=== PATIENT | male | born 2005 ===

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

== ENCOUNTER 2024-01-07 13:21 | Outpatient (REF) | payer MEDICAID, SELFPAY ==
--- NOTE | ~2024-01-07 | XR_ITS ---
EXAMINATION: XR HAND, RIGHT CLINICAL INFORMATION: Trauma after punching brick wall COMPARISON: None available. TECHNIQUE: PA, lateral, and oblique views of the right hand. FINDINGS: There is an impacted fracture through the base of the fifth metacarpal, consistent with the clinical history. The remainder of the right hand is intact. Joint spaces are preserved. XR/XR hand RT min 3V IMPRESSION: Fifth metacarpal boxer's fracture.
== END 2024-01-07 13:22 | disposition home or self-care (01) ==
LOC: HO.HHCX 13:21
PROVIDERS: Visit Provider Pediatrics
DX: S69.91XD Unspecified injury of right wrist, hand and finger(s), subsequent encounter (principal)
CPT/HCPCS: 73130

== ENCOUNTER 2024-01-15 16:26 | Emergency (ER) | payer OTHER, MEDICAID, SELFPAY ==
[2024-01-15] VITALS (13 sets, daily range): BP systolic 107–220; BP diastolic 46–100; PULSE 94–116; RESP 9–22; TEMP 36.7–36.8; O2SAT 94–100; BMI 35.9
--- NOTE | ~2024-01-15 | XR_ITS ---
EXAMINATION: XR KNEE, LEFT CLINICAL INFORMATION: Post reduction. COMPARISON: Radiograph right knee 09/29/2022. TECHNIQUE: Two views of the left knee. FINDINGS: Patella renea. No acute fracture or dislocation. Trace joint effusion. XR/XR knee LT 2V IMPRESSION: 1. Patella renea. 2. No acute fracture. 3. Trace joint effusion.
--- NOTE | ~2024-01-15 | XR_ITS ---
EXAMINATION: LEFT KNEE CLINICAL INFORMATION: Patella versus knee dislocation COMPARISON: Left knee 12/02/2015 TECHNIQUE: Single view of the knee FINDINGS: Detail is obscured by overlying material. No definite fracture is seen. No definite dislocation is seen. XR/XR knee LT 1V IMPRESSION: Limited exam. No definite fracture or dislocation is seen. Recommend full knee series if patient continues to be symptomatic
--- NOTE | 2024-01-15 16:57 | ECG_ITS ---
Test Reason : CONSCIOUS SEDATION Blood Pressure : / mmHG Vent. Rate : 090 BPM Atrial Rate : 090 BPM P-R Int : 154 ms QRS Dur : 082 ms QT Int : 338 ms P-R-T Axes : 024 021 029 degrees QTc Int : 413 ms Normal sinus rhythm Normal ECG When compared with ECG of 28-JAN-2013 12:59, No significant changes seen Referred By: Mary Jane Dexter Electronically Signed By:MICHELET CONTRERAS MD
[2024-01-15] MEDS: Morphine Sulfate 4 MG/ML CARTRIDGE IVPUSH (17:18)
--- NOTE | 2024-01-15 17:37 | ED_ITS ---
HPI - Extremity Injury (Lower) General Chief Complaint: Extremity Injury, Lower Stated Complaint: L-knee pain, dislocated patella while working Time Seen by Provider: 01/15/24 16:29 Source: patient, family and EMS Mode of arrival: EMS Limitations: no limitations History of Present Illness HPI Narrative: Patient comes to the emergency room by EMS, accompanied by his mother. Earlier today, patient was at work, patient states that he turned around, hurt his knee pop and since then he has had deformity and severe pain in the left knee. Patient states that he has dislocated his right knee twice and has had surgery. Patient denies any falls or trauma. Patient states that the last time he ate was approximately 3-4 hours ago Related Data Previous Rx's ?Medication ?Instructions ?Recorded ibuprofen 600 mg tablet 600 mg PO TID PRN fever or pain 01/15/24 #20 tabs Allergies Allergy/AdvReac Type Severity Reaction Status Date / Time No Known Allergies Allergy Verified 01/15/24 16:53 Review of Systems Review of Systems: Constitutional : No Weight loss, No Fever, No Chills, No Night Sweats, No Fatigue, No Malaise ENT/Mouth : No Hearing loss, No Ear Pain, No Nasal Congestion, No Sinus Pain, No Hoarseness, No sore throat, No Rhinorrhea, No Swallowing Difficulty Eyes: No Eye Pain, No Swelling, No Redness, No Foreign Body, No Discharge, No Vision Changes Cardiovascular : No Chest Pain, No SOB, No Dyspnea on Exertion, No Orthopnea, No Edema, No Palpitations Respiratory : No Cough, No Sputum, No Wheezing, No Smoke Exposure, No Dyspnea Gastrointestinal : No Nausea, No Vomiting, No Diarrhea, No Constipation, No abdominal Pain, No Hematochezia, No Melena Genitourinary : no irregular bleeding, No Dysuria, No Urinary Frequency, No Hematuria, No Urinary Incontinence, No Urgency, No Flank Pain, No Urinary Flow Changes, No Hesitancy Musculoskeletal : Complaining of deformity and pain in the left patella Skin : No Skin Lesions, No rash Neuro : No Weakness, No Numbness, No Paresthesias, No Loss of Consciousness, No Dizziness, No Headache Psych : No Anxiety/Panic, No Depression, No SI/HI/AH/VH, No Social Issues, Heme/Lymph: No Bruising, No Bleeding,No Lymphadenopathy Endocrine : No Polyuria, No Polydipsia, No Temperature Intolerance PMFSH Social History Social History Alcohol intake: never Patient Tobacco Use Status: Never used Tobacco Smoked in Last 30 Days: No Use of substances other than those prescribed or required for medical reasons: Yes Substance Use Type: Marijuana Advance Directives: No Advance Directives Information Provided: No Do you have a plan to hurt others: No Plan Current occupational status: student Physical Exam Vital Signs: Vital Signs: Last Vital Signs Temp 98.3 F 01/15/24 16:46 Pulse 98 01/15/24 18:56 Resp 16 01/15/24 18:56 BP 116/58 L 01/15/24 18:56 Pulse Ox 94 01/15/24 18:56 O2 Del Method Nasal Cannula 01/15/24 18:28 O2 Flow Rate 2 01/15/24 18:28 Oxygen Flow Rate 2 01/15/24 18:40 BMI result Body Mass Index 35.9 Const: Other: Appearance: Alert. Oriented X3. No acute distress. Eyes: Pupils equal, round and reactive to light. ENT: Pharynx normal. Neck: Normal inspection. Neck supple. No lymph nodes noted. No crepitus CVS: Normal heart rate and rhythm. Pulses normal. Normal S1 and S2 Respiratory: No respiratory distress. Breath sounds normal. No Wheezing. No rales Abdomen: Soft and nontender. No rigidity. No distention. Skin: Skin warm and dry. Normal skin color. Normal skin turgor. Extremities: Patient has good pedal pulses bilaterally, patient left patella seems to be dislocated Neuro: Oriented X 3. No motor deficit. No sensory deficit. Moving all extremities. No slurred speech. CN 2 through 12 grossly intact Psych: calm, cooperative, normal affect Course Course Course Narrative: -when patient arrived, it was attempted to reduce the patient's patella, however, patient could not tolerate it, patient requesting conscious sedation. Medications Administered Discontinued Medications Generic Name Dose Route Start Last Admin Trade Name Freq PRN Reason Stop Dose Admin Ketamine HCl 97.976 mg 01/15/24 17:32 01/15/24 17:58 Ketamine Hcl/Ns 50 Mg/5 Ml Syringe 1 mg/kg (97.976 mg) 01/15/24 17:33 97.976 mg IVPUSH Administration ONCE ONE Ketamine HCl 100 mg 01/15/24 18:54 01/15/24 17:58 Ketamine Hcl/Ns 50 Mg/5 Ml Syringe IVPUSH 01/15/24 18:55 100 mg NOW STA Administration Morphine Sulfate 4 mg 01/15/24 16:33 01/15/24 17:18 Morphine Sulfate 4 Mg/Ml Cartridge IVPUSH 01/15/24 16:34 4 mg ONCE ONE Administration Protocol Ondansetron HCl 4 mg 01/15/24 17:33 01/15/24 17:48 Ondansetron Hcl 4 Mg/2 Ml Vial IVPUSH 01/15/24 17:34 4 mg ONCE ONE Administration Medical Decision Making Medical Decision Making MDM Narrative: -my interpretation of EKG, normal sinus rhythm, heart rate 90, no ST segment depression or elevation, no T-wave inversion, QTC 413 -patient given IM morphine. IV to be inserted, patient will get Zofran and ketamine. Propofol was considered however the patient ate 3 to 4 hours ago. -patient agreed to conscious sedation and left knee reduction. Patient requested that his mother signed the consent, which she did. -my interpretation of knee x-ray: Patellar dislocation, no knee dislocation. -radiology report exam was limited. However on physical exam it was clear that the patella is dislocated. -patient tolerated well the procedure sedation with ketamine 2 milligrams/kilogram, patient received a total of 197 mg. -the patella was easily reduced, popped right back in place -on physical exam after reduction, patient has good strong pedal pulses and good capillary refill in the toes -2nd x-ray post reduction done, my interpretation of x-ray: Patella has been reduced successfully -patient's knee has been placed in a knee immobilizer, patient is still confused from sedation. When awake, patient will be taught how to use crutches although he has done before. -patient will follow-up with orthopedics. Differential Diagnosis Differential Diagnoses: The differential diagnosis associated with the presentation includes (Patellar dislocation, knee dislocation, knee contusion) Independent Interpretation I performed an independent interpretation of an: Plain X-Ray Radiology Impression Discussion of test interpretation with radiology: I have reviewed the radiologist's reading. Radiologist Impression: MPRESSION: Limited exam. No definite fracture or dislocation is seen. Recommend full knee series if patient continues to be symptomatic FINDINGS: Patella renea. No acute fracture or dislocation. Trace joint effusion. XR/XR knee LT 2V IMPRESSION: 1. Patella renea. 2. No acute fracture. 3. Trace joint effusion. Independent Historian Clinical information obtained from an independent historian. History obtained from or confirmed by: Parent Discharge Plan Discharge Clinical Impression: Closed dislocation of left patella Patient Disposition: Home, Self-Care Instructions: Crutch Instructions (ED), Knee Dislocation (ED), Knee Immobilizer (ED) Additional Instructions: Please follow-up with your primary care physician tomorrow. If you have any worsening or new symptoms, please return to the emergency room or call 911 Prescriptions: New ibuprofen 600 mg tablet 600 mg PO TID PRN (Reason: fever or pain) Qty: 20 0RF Print Language: Maltese
--- NOTE | 2024-01-15 17:46 | PC.NURSE ---
pt has positive pedal pulses and positive capillary refill to [facility].
[2024-01-15] MEDS: ondansetron HCL 4 MG/2 ML VIAL IVPUSH (17:48)
[2024-01-15] MEDS: Ketamine HCl/NS 50 MG/5 ML SYRINGE 97.976 MG IVPUSH (17:58)
[2024-01-15] MEDS: Ketamine HCl/NS 50 MG/5 ML SYRINGE 100 MG IVPUSH (17:58)
--- NOTE | 2024-01-15 18:31 | PC.NURSE ---
pt a&o x4, pleasant, calm, and cooperative. pt rating 10/10 knee pain with movement/no support. screaming upon arrival to ED. 20G IV placed to LAC and EKG obtained. pt mom at bedside. conscious sedation consent signed. pt placed on bedside monitor, placed on capnogaphy, on 2L O2. mom escorted to waiting room for procedure. pt medicated per nov, consciously sedated, tolerated well. knee immobilizer placed on pt. crutches at bedside. pt currently recovering from conscious sedation. mom back at bedside. rr even/unlabored. t/w at bedside. plan of care ongoing.
--- NOTE | 2024-01-15 20:21 | PC.NURSE ---
pt completely back to baseline mentation. a&o x4, pleasant, calm, and cooperative. pt reporting 1/10 pain to left knee.
== END 2024-01-15 20:25 | disposition home or self-care (01) ==
PROVIDERS: Emergency Provider Emergency Medicine
DX: S83.005A Unspecified dislocation of left patella, initial encounter (principal); X50.1XXA Overexertion from prolonged static or awkward postures, initial encounter; Y93.9 Activity, unspecified; Y92.9 Unspecified place or not applicable; Y99.0 Civilian activity done for income or pay
CPT/HCPCS: 27560; 27562; 73560; 93005; 96374; 96375; 99152; 99284; 99285; J2270; J2405

== ENCOUNTER → 2024-01-15 16:57 | Outpatient (BNV) | payer OTHER, MEDICAID, SELFPAY | PROVIDERS: Emergency Provider Emergency Medicine; Visit Provider Internal Medicine Cardiovascular Disease | DX: Z01.810 Encounter for preprocedural cardiovascular examination (principal) | CPT/HCPCS: 93010 ==

== ENCOUNTER 2024-01-17 09:50 | Outpatient (REF) | payer OTHER, MEDICAID, SELFPAY ==
--- NOTE | ~2024-01-17 | XR_ITS ---
EXAMINATION: XR HAND, RIGHT CLINICAL INFORMATION: Pain in right hand COMPARISON: Prior x-rays of the right hand December 2023 TECHNIQUE: PA, lateral, and oblique views of the right hand. FINDINGS: Nondisplaced minimally angulated fracture the proximal fifth metacarpal. The fracture may extend to the proximal articular surface. The appearance is unchanged. Remaining bone and joints are unremarkable. XR/XR hand RT min 3V IMPRESSION: Unchanged appearance of fracture of the proximal fifth metacarpal.
== END 2024-01-17 09:51 | disposition home or self-care (01) ==
LOC: HO.HOSX 09:50
PROVIDERS: Visit Provider Physician Assistant
DX: M79.641 Pain in right hand (principal); S83.005A Unspecified dislocation of left patella, initial encounter
CPT/HCPCS: 26600; 73130; 99212

== ENCOUNTER 2024-01-17 10:29 | Outpatient (AMB) | payer MEDICAID, SELFPAY ==
--- NOTE | 2024-01-17 11:04 | MHC.OFFVIS ---
Vital Signs 01/17/24 11:08 Height 5 ft 5 in Weight 215 lb BMI 35.8 Intake Visit Reasons: FC-R boxer FC 5th Metacarpal angulated-DOI 01/07/24 Intake Note: Tito a 18 year old right hand dominant male who presents today for an ER follow up of right 5th MC fracture, DOI 01/07/24. Patient reports that he punched a brick wall, he [place] [facility] were taken and placed in a finger splint. Current pain level is 2 out of 10. States increase of pain with using crutches that is due to a recent work injury. Denies numbness or tingling. Allergies No Known Allergies Allergy (Verified 01/15/24 16:53) Medication List - Last Reconciled 01/17/24 by Priyanka Shabazz PA-C ibuprofen 600 mg PO TID PRN HPI HPI FC-R micky FC 5th Metacarpal angulated-DOI 01/07/24: Details: 18-year-old male who presents to the office today for an ER follow-up of right 5th metatarsal injury after punching a brick wall, 01/07/24. He was seen at ED where x-rays were performed and he was placed in a finger splint. He currently states he has pain and mild discomfort in his finger and rates the pain as 2 on the scale of 0-10. His pain is aggravated with using crutches which he has been using due to a recent work injury. He denies any numbness or tingling. 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 There is some tenderness over the base of the 5th metacarpal. There is no scissoring or angulation of the small finger. He can fully extend and bring his hand to a closed fist. Office Procedures Casting/Splints 30749-Ssmw/Wrist Cast Application Procedure code (CPT) selection complete Fracture Care Fracture Billing Code: Fracture Billing Code Results Reviewed Results Reviewed: xrays of the right hand obtained in the office today show non displaced fx through the base of the 5th metacarpal Assessment & Plan Assessment & Plan (1) Closed fracture of 5th metacarpal: Code(s): S62.308A - Unspecified fracture of other metacarpal bone, initial encounter for closed fracture Category: Medical Plan For his right hand, he was placed in a cast which he will wear for 3 weeks for immobilization of fracture site. He will perform no lifting more than a cellphone. He will continue working without lifting heavy with right hand. Orders: Orders XR hand RT min 3V Today M79.641 - Pain in right hand Patient Instructions: Scribed for Priyanka Shabazz PA-C, by Johnathon Colin medical pathology teacher, on 01/17/2024 at 10:45 AM EST. I, Priyanka Shabazz PA-C, have personally reviewed and agree with the information entered by the scribe. Coding Level of Care Code New Pt Level 3 (72332) Diagnoses Closed fracture of 5th metacarpal S62.308A CPT Codes Casting - CPT: 75827-Psnj/Wrist Cast Application ([id number]) Fracture Care - Fracture Billing Code: Fracture Billing Code ([id number])
[2024-01-17 11:08] VITALS: BMI 35.8
== END 2024-01-17 12:17 | disposition home or self-care (01) ==
PROVIDERS: PCP Pediatrics; Visit Provider Physician Assistant
DX: S62.346A Nondisplaced fracture of base of fifth metacarpal bone, right hand, initial encounter for closed fracture (principal)
CPT/HCPCS: 26600; 99203

== ENCOUNTER 2024-01-17 14:40 | Outpatient (AMB) | payer OTHER, SELFPAY ==
--- NOTE | 2024-01-17 14:42 | A.OFFVIS_ITS ---
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 Patient reports while he was at work he turned around and heard a pop. He [place] [facility] [place], xrays were taken and he was placed in a knee immobilizer. 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 He states he was at work standing, when he had his foot planed and he twisted he felt his patella dislocate. He was seen in the ED, xrays obtained and he was placed in a splint and referred to our office for ortho eval. 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 Significant joint effusion. Tenderness along the medial and lateral aspect of the patella. He can fully extend the knee, flexion limited to 20 deg. Negative steinmans. No ligamentous laxity. NVI. Assessment & Plan Assessment & Plan (1) Dislocation of left patella: Code(s): S83.005A - Unspecified dislocation of left patella, initial encounter Category: Medical Plan For the left knee, he will discontinue the use of his knee immobilizer. He was fit for a patellar stabilizing knee brace. He will begin ROM exercises, which were demonstrated in the office today. An order for MRI was placed for his left knee as this is his 3rd patellar dislocation to determine the next step in his treatment. Coding Level of Care Code Est Pt Level 3 (47563) Diagnoses Dislocation of left patella S83.005A
== END 2024-01-17 14:54 | disposition home or self-care (01) ==
LOC: HO.HOS 14:41
PROVIDERS: Visit Provider Physician Assistant
DX: S83.005A Unspecified dislocation of left patella, initial encounter (principal)
CPT/HCPCS: 99213

== ENCOUNTER 2024-02-10 13:01 | Outpatient (AMB) | payer OTHER, MEDICAID, SELFPAY ==
--- NOTE | 2024-02-10 13:17 | A.OFFVIS_ITS ---
Intake Visit Reasons: ov-R micky FC 5th Metacarpal angulated-DOI 01/07/24 Intake Note: Tito a 18 year old male who presents today for a follow up on right 5th metacarpal fracture, DOI 01/07/24. Cast off and xrays updated. Patient reports that he is doing well, he does have stiffness with cast off. States discomfort at his MCP of his 5th digit. Allergies No Known Allergies Allergy (Verified 02/10/24 13:23) HPI HPI ov-R micky FC 5th Metacarpal angulated-DOI 01/07/24: Details: 18-year-old male who returns to the office today for a follow-up of right 5th metacarpal fracture, 01/07/24. He states he is doing well overall however he does have discomfort at MCP of his 5th digit. He also reports stiffness with cast off. He has no other concerns today. 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 He has no swelling noted. Mild discomfort along the base of 5th metacarpal. No scissoring or angulation of digits. NVI. Results Reviewed Results Reviewed: xrays of the right hand obtained in the office today show non displaced fx through the base of the 5th metacarpal with stable alignment Assessment & Plan Assessment & Plan (1) Closed fracture of 5th metacarpal: Code(s): S62.308A - Unspecified fracture of other metacarpal bone, initial encounter for closed fracture Category: Medical Plan He was transitioned to a Velcro wrist splint which he will wear with activities. He will avoid lifting more than a cellphone. He will remove the splint for hygiene and resting. I would like to see him back in 4 weeks with x-rays, sooner if needed. Orders: Orders MR knee LT wo con Today S83.005A - Unspecified dislocation of left patella, initial encounter XR hand RT min 3V Today M79.641 - Pain in right hand Patient Instructions: Scribed for Priyanka Shabazz PA-C, by Johnathon Colin durable medical equipment technician, on 02/10/2024 at 1:30 PM EST.? I, Priyanka Shabazz PA-C, have personally reviewed and agree with the information entered by the scribe. Coding Level of Care Code Global (24870) Diagnoses Closed fracture of 5th metacarpal S62.308A
== END 2024-02-10 13:53 | disposition home or self-care (01) ==
PROVIDERS: Visit Provider Physician Assistant
DX: S62.308A Unspecified fracture of other metacarpal bone, initial encounter for closed fracture (principal)
CPT/HCPCS: 99024

== ENCOUNTER 2024-02-10 15:04 | Outpatient (REF) | payer OTHER, MEDICAID, SELFPAY ==
--- NOTE | ~2024-02-10 | XR_ITS ---
EXAMINATION: XR HAND, RIGHT CLINICAL INFORMATION: Pain in right hand, cast off. COMPARISON: 01/17/2024 TECHNIQUE: PA, lateral, and oblique views of the right hand. FINDINGS: Redemonstration of nondisplaced, minimally angulated fracture of the proximal aspect of the fifth metacarpal. Alignment is similar. Decreased soft tissue swelling. Fracture line is less conspicuous suggesting some interval bridging callus formation. XR/XR hand RT min 3V IMPRESSION: Redemonstration of nondisplaced, minimally angulated fracture of the proximal aspect of the fifth metacarpal. Alignment is similar. Decreased soft tissue swelling. Fracture line is less conspicuous suggesting some interval bridging callus formation.
== END 2024-02-10 15:05 | disposition home or self-care (01) ==
LOC: HO.HOSX 15:04
PROVIDERS: Visit Provider Physician Assistant
DX: S62.346D Nondisplaced fracture of base of fifth metacarpal bone, right hand, subsequent encounter for fracture with routine healing (principal)
CPT/HCPCS: 73130; 99212

== ENCOUNTER 2024-03-09 12:59 | Outpatient (REF) | payer OTHER, MEDICAID, SELFPAY ==
--- NOTE | ~2024-03-09 | XR_ITS ---
EXAMINATION: XR HAND, RIGHT CLINICAL INFORMATION: Right hand pain COMPARISON: Radiographs 02/10/2024 TECHNIQUE: PA, lateral, and oblique views of the right hand. FINDINGS: Previously demonstrated fracture of the proximal 5th metacarpal appears completely healed. No new abnormality. XR/XR hand RT min 3V IMPRESSION: Healed fracture of the proximal 5th metacarpal.
== END 2024-03-09 13:00 | disposition home or self-care (01) ==
LOC: HO.HOSX 12:59
PROVIDERS: Visit Provider Physician Assistant
DX: S62.346D Nondisplaced fracture of base of fifth metacarpal bone, right hand, subsequent encounter for fracture with routine healing (principal)
CPT/HCPCS: 73130; 99212

== ENCOUNTER 2024-03-09 14:28 | Outpatient (AMB) | payer OTHER, SELFPAY ==
--- NOTE | 2024-03-09 14:45 | A.OFFVIS_ITS ---
Vital Signs 03/09/24 14:50 Height 5 ft 5 in Weight 215 lb BMI 35.8 Intake Visit Reasons: OV-4wk f/u rt hand fx w xrays Intake Note: Tito a 18 year old male who presents today for a follow up on right 5th metacarpal fracture, DOI 01/07/24. Xrays updated. Patient reports he is oding well, states intermittent tingling sensation located at the ulnar aspect of hand. He continues to wear wrist brace at work. Allergies No Known Allergies Allergy (Verified 03/09/24 14:50) Medication List - Last Reconciled 03/09/24 by Priyanka Shabazz PA-C No Known Home Meds HPI HPI OV-4wk f/u rt hand fx w xrays: Details: 18-year-old male who returns to the office today for a follow-up of right 5th metacarpal fracture, 01/07/24. He states he has intermittent tingling sensation at the ulnar aspect of his hand. He continues to wear the wrist brace at work as instructed. He is doing well overall and has no other concerns today. 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 No bony abnormalities. No abrasion of the 5th metacarpal. No angulation or scissoring. NVI. Results Reviewed Results Reviewed: xrays of the right hand obtained in the office today show non displaced fx through the base of the 5th metacarpal with stable alignment Assessment & Plan Assessment & Plan (1) Closed fracture of 5th metacarpal: Code(s): S62.308A - Unspecified fracture of other metacarpal bone, initial encounter for closed fracture Category: Medical Qualifiers: Encounter type: subsequent encounter Metacarpal location: base Fracture alignment: nondisplaced Laterality: right Fracture healing: with routine healing Qualified Code(s): S62.346D - Nondisplaced fracture of base of fifth metacarpal bone, right hand, subsequent encounter for fracture with routine healing Plan He can discontinue the Velcro wrist brace and he can begin increase activities as tolerated. I did explain that over the next 4-6 weeks he needs to use caution with impact activities for avoiding the risk of reinjury. He will see me back as needed. Orders: Orders XR hand RT min 3V Today M79.641 - Pain in right hand Patient Instructions: Scribed for Priyanka Shabazz PA-C, by Johnathon Colin medical scientific officer, on 03/09/2024 at 2:30 PM EST.? I, Priyanka Shabazz PA-C, have personally reviewed and agree with the information entered by the scribe. Coding Level of Care Code Global (35241) Diagnoses Closed nondisplaced fracture of base of fifth metacarpal bone of right hand with routine healing, subsequent encounter S62.346D Encounter type: subsequent encounter Metacarpal location: base Fracture alignment: nondisplaced Laterality: right Fracture healing: with routine healing
[2024-03-09 14:50] VITALS: BMI 35.8
== END 2024-03-09 15:46 | disposition home or self-care (01) ==
PROVIDERS: Visit Provider Physician Assistant
DX: S62.346D Nondisplaced fracture of base of fifth metacarpal bone, right hand, subsequent encounter for fracture with routine healing (principal)
CPT/HCPCS: 99024